=== PATIENT | female | born 1995 | race Caucasian/White ===

== ENCOUNTER 2024-06-11 14:59 | Emergency (ER) | payer BC, OTHER ==
[~2024-06-11] VITALS: Ht 167.6 cm; Wt 75.8 kg
[2024-06-11 15:17] VITALS: BP 112/65; PULSE 84; RESP 18; TEMP 99; O2SAT 97
[2024-06-11] MEDS: IBUPROFEN 600 MG TAB PO ONE (20:01)
[2024-06-11 20:13] VITALS: BP 112/65; PULSE 84; RESP 18; TEMP 99; O2SAT 97
== END 2024-06-11 20:13 | disposition home or self-care (01) ==
LOC: MED 14:59
DX: S00.83XA Contusion of other part of head, initial encounter (principal); V43.62XA Car passenger injured in collision with other type car in traffic accident, initial encounter; Y93.89 Activity, other specified; Y92.410 Unspecified street and highway as the place of occurrence of the external cause; Y99.8 Other external cause status
CPT/HCPCS: 70110; 70150; 99284